=== PATIENT | female | born 1960 | race Caucasian/White ===

== ENCOUNTER 2018-04-11 14:00 | Emergency (ER) | payer MEDICAID ==
[2018-04-11] MEDS ORDERED: KETOROLAC 60MG/2ML VIAL IM ONE (16:00)
[2018-04-11 17:11] VITALS: BP 114/89
== END 2018-04-11 17:20 | disposition home or self-care (01) ==
LOC: ER 14:00
DX: M25.531 Pain in right wrist (principal); G58.8 Other specified mononeuropathies; M62.58 Muscle wasting and atrophy, not elsewhere classified, other site; R21 Rash and other nonspecific skin eruption; F17.200 Nicotine dependence, unspecified, uncomplicated; Z98.890 Other specified postprocedural states
CPT/HCPCS: 73110; 96372; 99283; J1885

== ENCOUNTER 2018-08-01 17:55 | Emergency (ER) | payer MEDICAID ==
[~2018-08-01] VITALS: Ht 162.6 cm; Wt 62.0 kg
[2018-08-01] MEDS ORDERED: BACITRACIN ZINC OINT UDPKT TOP ONE (18:15)
[2018-08-01] MEDS ORDERED: HYDROCODONE/ACETAMINOPHEN 5/325MG TABLET PO ONE (18:15)
[2018-08-01] MEDS ORDERED: TETANUS, DIPHTHERIA, PERTUSSIS VAC/PF 0.5ML (>7YR OLD) IM ONE (18:15)
[2018-08-01 20:17] VITALS: BP 137/93
== END 2018-08-01 20:24 | disposition home or self-care (01) ==
LOC: ER 17:55
DX: S92.341A Displaced fracture of fourth metatarsal bone, right foot, initial encounter for closed fracture (principal); S92.351A Displaced fracture of fifth metatarsal bone, right foot, initial encounter for closed fracture; F17.290 Nicotine dependence, other tobacco product, uncomplicated; W01.0XXA Fall on same level from slipping, tripping and stumbling without subsequent striking against object, initial encounter; Y93.89 Activity, other specified; Y92.89 Other specified places as the place of occurrence of the external cause; Y99.8 Other external cause status
CPT/HCPCS: 73610; 73630; 90471; 90715; 99283; Z7610

== ENCOUNTER 2021-06-04 21:32 | Emergency (ER) | payer MEDICAID, OTHER ==
[~2021-06-04] VITALS: Ht 167.6 cm; Wt 61.8 kg
[2021-06-04 21:59] VITALS: BP 148/88
[2021-06-04] MEDS ORDERED: LIDOCAINE HCL/PF 1% 10 MG/ML 5ML VIAL INFIL ONE (22:30)
[2021-06-04] MEDS ORDERED: ACETAMINOPHEN WITH CODEINE 300/30MG TABLET PO ONE (22:30)
[2021-06-04] MEDS ORDERED: IBUP-2029 MT (23:02)
[2021-06-04] MEDS ORDERED: LIDOCAINE HCL 1% 20ML VIAL (Pyxis) INJ INFIL SCH (23:30)
[2021-06-04] MEDS ORDERED: T3 PO (23:34)
== END 2021-06-05 00:02 | disposition home or self-care (01) ==
LOC: ER 21:32
DX: S62.396A Other fracture of fifth metacarpal bone, right hand, initial encounter for closed fracture (principal); W01.0XXA Fall on same level from slipping, tripping and stumbling without subsequent striking against object, initial encounter; Y93.89 Activity, other specified; Y92.89 Other specified places as the place of occurrence of the external cause
CPT/HCPCS: 26605; 73140; 99284; J3490